=== PATIENT | male | born 1965 | race Two or more races ===

== ENCOUNTER 2022-03-21 06:24 | Outpatient (CLI) | payer OTHER | END 2022-03-21 06:25 | disposition home or self-care (01) | LOC: LAB 06:24 | PROVIDERS: ATTEND Urology | DX: R68.82 Decreased libido (principal); R53.83 Other fatigue; R39.198 Other difficulties with micturition; N52.02 Corporo-venous occlusive erectile dysfunction; M54.50 Low back pain, unspecified; F32.9 Major depressive disorder, single episode, unspecified; G47.33 Obstructive sleep apnea (adult) (pediatric); E66.3 Overweight; N42.89 Other specified disorders of prostate; Z12.5 Encounter for screening for malignant neoplasm of prostate ==

== ENCOUNTER 2022-11-02 08:37 | Outpatient (CLI) | payer OTHER | END 2022-11-02 08:39 | disposition home or self-care (01) | LOC: NUCLEAR 08:37 | DX: R06.00 Dyspnea, unspecified (principal); I27.21 Secondary pulmonary arterial hypertension ==

== ENCOUNTER 2022-11-02 10:07 | Outpatient (CLI) | payer OTHER | END 2022-11-02 10:08 | disposition home or self-care (01) | LOC: LAB 10:07 | DX: R68.82 Decreased libido (principal); R53.83 Other fatigue; R39.198 Other difficulties with micturition; N52.02 Corporo-venous occlusive erectile dysfunction; Z12.5 Encounter for screening for malignant neoplasm of prostate; M54.50 Low back pain, unspecified; F32.9 Major depressive disorder, single episode, unspecified; G47.33 Obstructive sleep apnea (adult) (pediatric); E66.3 Overweight ==

== ENCOUNTER 2023-02-15 09:09 | Outpatient (CLI) | payer OTHER | END 2023-02-15 09:12 | disposition home or self-care (01) | LOC: LAB 09:09 | PROVIDERS: ATTEND Urology | DX: E29.1 Testicular hypofunction (principal); R68.82 Decreased libido; R53.83 Other fatigue; R39.198 Other difficulties with micturition; N52.02 Corporo-venous occlusive erectile dysfunction; Z12.5 Encounter for screening for malignant neoplasm of prostate; M54.50 Low back pain, unspecified; F32.9 Major depressive disorder, single episode, unspecified; G47.33 Obstructive sleep apnea (adult) (pediatric); E66.3 Overweight ==

== ENCOUNTER → 2023-03-20 09:34 | Outpatient (CLI) | payer OTHER | END | disposition home or self-care (01) | LOC: LAB 09:34 | PROVIDERS: ATTEND Urology | DX: E29.1 Testicular hypofunction (principal); R68.82 Decreased libido; R53.83 Other fatigue; R39.198 Other difficulties with micturition; N52.02 Corporo-venous occlusive erectile dysfunction; Z12.5 Encounter for screening for malignant neoplasm of prostate; M54.50 Low back pain, unspecified; F32.9 Major depressive disorder, single episode, unspecified; G47.33 Obstructive sleep apnea (adult) (pediatric); E66.3 Overweight ==

== ENCOUNTER 2024-09-12 07:13 | Outpatient (CLI) | payer OTHER ==
[2024-09-12 07:53] LABS: HEMATOCRIT 44.9 % (39.0-48.0); HEMOGLOBIN 15.1 g/dL (13-16.00); MEAN CELL VOLUME 79.2 fL (80.0-100.00); MEAN CORPUSCULAR HEMOGLOBIN 26.7 pg (27.00-32.0); MEAN CORPUSCULAR HGB CONC 33.7 g/dl (32.0-36.0); PLATELET COUNT 371 K/uL (150-450); RED BLOOD COUNT 5.67 M/uL (4.00-6.00); RED CELL DISTRIBUTION WIDTH 14.3 % (11.5-14.5)
[2024-09-12 08:09] LABS: PH,URINE 5.5 (5.0-8.0); URINE APPEARANCE Clear; URINE BILIRRUBIN Negative (NEGATIVE); URINE BLOOD Trace; URINE COLOR Yellow; URINE GLUCOSE Negative (NEGATIVE); URINE KETONE Negative (NEGATIVE); URINE LEUKOCYTE Negative; URINE NITRATE Negative; URINE PROTEIN Negative (NEGATIVE)
[2024-09-12 08:13] LABS: URINE EPITHELIAL CELLS 2.5 uL (0.0-38.8)
[2024-09-12 08:28] LABS: ALBUMIN 3.7 gm/dL (3.4-5.0); BILIRUBIN TOTAL 0.54 mg/dL (0.3-1.2); CHOL HDL RATIO 5.3 (0-5.0); CREATININE SERUM 0.84 mg/dL (0.70-1.30); GFR 93.21; GLOBULINA 3.7 G/DL (2.4-3.5); POTASSIUM 4.56 mEq/L (3.5-5.1); TOTAL PROTEIN 7.4 gm/dL (6.4-8.2)
[2024-09-12 08:33] LABS: URINE BACTERIA 2.4 uL (0.0-1933)
[2024-09-12 08:35] LABS: MYCOPLASMA PNEUMONIAE IGM NON REACTIVE (NO REACTIVE)
== END 2024-09-12 07:14 | disposition home or self-care (01) ==
LOC: LAB 07:13
PROVIDERS: ATTEND Family Medicine
DX: R10.9 Unspecified abdominal pain (principal); J11.1 Influenza due to unidentified influenza virus with other respiratory manifestations; Z20.822 Contact with and (suspected) exposure to COVID-19; R00.9 Unspecified abnormalities of heart beat; I10 Essential (primary) hypertension; E78.5 Hyperlipidemia, unspecified; R73.9 Hyperglycemia, unspecified

== ENCOUNTER 2025-02-03 09:05 | Outpatient (CLI) | payer OTHER ==
[2025-02-03 10:52] LABS: ALT/SGPT 43.0 U/L (12-78); AST/SGOT 25.0 U/L (15-37); CHOL HDL RATIO 4.9 (0-5.0); HDL 47.0 mg/dl (40-60); LDL 151.0 mg/dl (0-130); VLDL 29.0 (0-39)
== END 2025-02-03 09:12 | disposition home or self-care (01) ==
LOC: LAB 09:05
PROVIDERS: ATTEND Family Medicine
DX: E78.5 Hyperlipidemia, unspecified (principal)